=== PATIENT | female | born 1990 | race African-American/Black ===

== ENCOUNTER 2017-09-07 09:16 | Emergency (ER) | payer MEDICAID, OTHER ==
[2017-09-07] MEDS ORDERED: Erythromycin Base 0.5% Oint 1 GM TUBE ONE (11:13)
== END 2017-09-07 11:20 | disposition home or self-care (01) ==
LOC: ERS 09:16
DX: H18.821 Corneal disorder due to contact lens, right eye (principal)
CPT/HCPCS: 99283

== ENCOUNTER 2017-10-04 10:53 | Emergency (ER) | payer OTHER ==
[2017-10-04] MEDS ORDERED: Mag-Al 1200 mg/1200 mg/30 ML UDCUP ONE (11:59)
[2017-10-04] MEDS ORDERED: Lidocaine Viscous Sol 2% 15 ml UD Cup ONE (11:59)
[2017-10-04 12:42] LABS: #Basophils 0.1 thou/uL (0.0-0.2); #Eosinphils 0.4 thou/uL (0.0-0.7); #Monocytes 0.4 thou/uL (0.11-0.59); #Neutrophils 2.4 thou/uL (1.40-6.50); %Basophils 1.3 % (0.0-1.0); %Eosinophils 6.6 % (0.0-10.0); %Lymphocytes 47.6 % (21.0-51.0); %Monocytes 6.2 % (0.0-10.0); Hematocrit 43.3 % (36.0-47.0); Mean Platelet Volume 9.2 fL (7.4-10.4); White Blood Cell (WBC) Count 6.3 thou/uL (4.8-10.8)
[2017-10-04 12:52] LABS: Troponin I Less than 0.010 ng/mL (< 0.028)
[2017-10-04 12:56] LABS: ALT (SGPT) 13 U/L (8-55); AST (SGOT) 16 U/L (5-34); Alkaline Phosphatase 82 U/L (40-150); Anion Gap 14 mmol/L (10-20); BUN (Urea Nitrogen) 12 mg/dL (7.0-18.7); Bilirubin, Total 0.2 mg/dL (0.2-1.2); Calc. Creatinine Clearance 0 mL/min (70-130); Calcium 9.4 mg/dL (7.8-10.44); Carbon Dioxide 23 mmol/L (22-29); Chloride 105 mmol/L (98-107); Estimated GFR-MDRD 87; Globulin 3.5 g/dL (2.4-3.5); Protein, Total 7.6 g/dL (6.0-8.3)
--- NOTE | 2017-10-04 14:17 | CT ---
CT ANGIOGRAM THORAX WITH IV CONTRAST AND 3D RECONSTRUCTIONS: Date: 10/04/17 HISTORY: Chest pain that began last . Patient describes the chest pain as sharp and constant and loca marisol substernally. FINDINGS: No filling defects are seen in the pulmonary arteries to suggest a pulmonary embolus. The thoracic a elvei is normal in caliber without evidence of an aortic dissection. There is soft tissue density in the anterior superior mediastinum likely related to residual thymus. There is a tiny, 3.0 mm, noncalcified pulmonary nodule in the anterior aspect left lower lobe with a n additional tiny, approximately 3.0 mm, pleural based nodular density. There is a small, approximat gillian 4.0 mm, pulmonary nodule also seen in the left lower lobe further inferiorly, as well as an ankur tional pleural based nodular density measuring 3-4 mm seen laterally within the left lower lobe. There are two noncalcified pulmonary nodules within the right lower lobe, each measuring approximat gillian 5.0 mm. There is a smaller, approximately 3.0 mm, pulmonary nodule in the more inferior aspect o f the right lower lobe. The exact etiology for these pulmonary nodules on this examination is uncert ain. However, given multiplicity, a short interval follow-up examination is recommended. A few of e small pulmonary nodules were seen in the inferior lung bases on the prior CT abdomen in 2013. There are mildly prominent right axillary lymph nodes seen, the largest measuring approximately 1.2 cm in short axis dimension. This is overall nonspecific. IMPRESSION: 1. Multiple bilateral lower lobe pulmonary nodules measuring 5.0 mm or less which are of uncertain etiology. Some of these nodules were partially imaged on the prior CT abdomen on 03/16/14. However, given multiplicity of pulmonary nodules, follow-up evaluation in 4-6 months is recommended. 2. Mildly prominent nonspecific right axillary lymph nodes. 3. No CT evidence of a pulmonary embolus. Above findings discussed with Dr. Meyer in the emergency department on 10/04/17 at 1409 hours. CODE CR. POS: [id number]
[2017-10-04] MEDS ORDERED: ISOVUE-370 76%-LOCM 1 ML ONE (15:44)
== END 2017-10-04 15:35 | disposition home or self-care (01) ==
LOC: ERS 10:53
DX: R07.2 Precordial pain (principal); R91.8 Other nonspecific abnormal finding of lung field
CPT/HCPCS: 36415; 71275; 80053; 82553; 84484; 85025; 85379; 93005; 96360

== ENCOUNTER 2017-12-30 12:15 | Emergency (ER) | payer OTHER ==
[2017-12-30] MEDS ORDERED: Proparacaine 0.5% Opth 15 ML BOT ONE (14:30)
[2017-12-30] MEDS ORDERED: Fluorescein Opthalmic Strip ONE ×2 (14:30→14:31)
== END 2017-12-30 15:00 | disposition home or self-care (01) ==
LOC: ERS 12:15
DX: H10.022 Other mucopurulent conjunctivitis, left eye (principal)
CPT/HCPCS: 99283

== ENCOUNTER 2019-03-17 16:39 | Emergency (ER) | payer OTHER ==
--- NOTE | 2019-03-17 17:01 | RAD ---
3 views right ankle: 03/17/2019 COMPARISON: None HISTORY: Twisted right ankle, trauma, pain FINDINGS: The talar dome and ankle mortise are intact. There is mild soft tissue swelling seen anteri clarice. There is mild enthesophyte formation at the insertion of the Achilles tendon. Midfoot dorsal degenerative change noted with joint space narrowing and osteophyte formation. No displaced fracture or dislocation. IMPRESSION: No displaced fracture or evidence of dislocation.
== END 2019-03-17 18:35 | disposition home or self-care (01) ==
LOC: ERS 16:39
DX: S93.401A Sprain of unspecified ligament of right ankle, initial encounter (principal); X50.9XXA Other and unspecified overexertion or strenuous movements or postures, initial encounter

== ENCOUNTER 2019-11-02 07:48 | Outpatient (CLI) | payer OTHER ==
--- NOTE | 2019-11-02 09:26 | ULT ---
THYROID ULTRASOUND: HISTORY: Thyroid nodule. FINDINGS: Real-time imaging of the right and left lobes of the gland were performed. The right lobe measures 1 .8 x 2.5 x 5.8 cm and the left lobe 1.7 x 1.8 x 5.5 cm. No nodules identified. IMPRESSION: No evidence of any thyroid nodules. POS: [facility]
== END 2019-11-02 07:49 | disposition home or self-care (01) ==
LOC: BICULT 07:48
PROVIDERS: ATTEND Internal Medicine
DX: E04.9 Nontoxic goiter, unspecified (principal)
CPT/HCPCS: 76536

== ENCOUNTER 2023-08-13 10:07 | Emergency (ER) | payer OTHER ==
[2023-08-13] MEDS ORDERED: Proparacaine 0.5% Opth 15 ML BOT ONE (10:34)
[2023-08-13] MEDS ORDERED: Fluorescein Opthalmic Strip ONE (10:34)
[2023-08-13] MEDS ORDERED: Moxifloxacin 0.5% Opth Drop 3 ML BOT EA EYE SCH (12:00)
[2023-08-13] MEDS ORDERED: Ciprofloxacin 0.3% Ophth Soln 2.5 ml Bottle EA EYE SCH (13:00)
== END 2023-08-13 13:03 | disposition short-term general hospital (02) ==
LOC: ERS 10:07
DX: H44.002 Unspecified purulent endophthalmitis, left eye (principal); E11.9 Type 2 diabetes mellitus without complications; Z79.84 Long term (current) use of oral hypoglycemic drugs
CPT/HCPCS: 99284

== ENCOUNTER 2024-12-21 14:16 | Emergency (ER) | payer OTHER ==
[~2024-12-21 14:16] MED LIST: Iopamidol-370 76% 500 ML MDV (1 ML CHARGE) ONE
[2024-12-21] MEDS ORDERED: Ketorolac Tromethamine 30 MG (1 mL) VIAL ONE (15:44)
[2024-12-21 16:24] LABS: #Basophils 0.05 10x3/uL (0.0-0.2); %Basophils 0.5 % (0.0-1.0); %Eosinophils 0.8 % (0.0-10.0); %Lymphocytes 32.7 % (21.0-51.0); %Monocytes 7.1 % (0.0-10.0); %Neutrophils 58.6 % (42.0-75.0); Hematocrit 40.1 % (36.0-47.0); Hemoglobin 13.4 g/dL (12.0-16.0); Mean Corpuscular HGB CONC 33.4 g/dL (32.0-36.0); Mean Corpuscular Hemoglobin 29.3 pg (27.0-31.0); Mean Corpuscular Volume 87.7 fL (78.0-98.0); Platelet Count 251 10x3/uL (130-400); RBC Distribution Width 13.2 % (11.5-14.5); Red Blood Cell (RBC) Count 4.57 mill/uL (4.20-5.40)
[2024-12-21 16:47] LABS: ALT (SGPT) 7 U/L (Less than 34); AST (SGOT) 18 U/L (11-34); Albumin 4.1 g/dL (3.1-4.5); Alkaline Phosphatase 90 U/L (40-110); Anion Gap 15 mmol/L (10-20); BUN (Urea Nitrogen) 12 mg/dL (7.0-18.7); Bilirubin, Total 0.2 mg/dL (0.3-1.2); Calc. Creatinine Clearance 0 mL/min (70-130); Calcium 9.2 mg/dL (7.8-10.44); Carbon Dioxide 19 mmol/L (22-29); Chloride 108 mmol/L (98-107); Estimated GFR 66; Globulin 4.5 g/dL (2.4-3.5); Glucose 103 mg/dL (70-105); Potassium 3.6 mmol/L (3.5-5.1); Protein, Total 8.6 g/dL (6.0-8.3); Sodium 138 mmol/L (136-145)
[2024-12-21 18:03] LABS: BHCG - Serum Negative (NEGATIVE); Pregs Control Background? CLEAR/WHITE (CLR/WHITE); Pregs Control Bar Appear? YES (CONTROL BAR)
[2024-12-21] MEDS ORDERED: Lidocaine 1% PF 5 ML VIAL ONE (18:46)
[2024-12-21] MEDS ORDERED: Clindamycin 150 MG CAP ONE ×2 (19:20→19:31)
== END 2024-12-21 19:42 | disposition home or self-care (01) ==
LOC: ERS 14:16
DX: L02.11 Cutaneous abscess of neck (principal); E11.9 Type 2 diabetes mellitus without complications
CPT/HCPCS: 10060; 36415; 70491; 80053; 83605; 84703; 85025; 86141; 87070; 87077; 87205; 96374; J1885; Q9967

== ENCOUNTER 2025-10-05 16:59 | Emergency (ER) | payer OTHER ==
[2025-10-05 17:27] LABS: #Basophils 0.07 10x3/uL (0.0-0.2); #Eosinophils 0.30 10x3/uL (0.0-0.7); #Monocytes 0.72 10x3/uL (0.11-0.59); #Neutrophils 4.07 10x3/uL (1.40-6.50); %Basophils 0.7 % (0.0-1.0); %Eosinophils 3.1 % (0.0-10.0); %Lymphocytes 46.4 % (21.0-51.0); %Monocytes 7.5 % (0.0-10.0); %Neutrophils 42.2 % (42.0-75.0); Hematocrit 43.8 % (36.0-47.0); Hemoglobin 14.6 g/dL (12.0-16.0); Mean Corpuscular Hemoglobin 29.7 pg (27.0-31.0); Mean Corpuscular Volume 89.0 fL (78.0-98.0); Platelet Count 197 10x3/uL (130-400); Red Blood Cell (RBC) Count 4.92 mill/uL (4.20-5.40); White Blood Cell (WBC) Count 9.65 10x3/uL (4.8-10.8)
[2025-10-05 17:45] LABS: ALT (SGPT) 18 U/L (Less than 34); AST (SGOT) 22 U/L (11-34); Albumin 4.4 g/dL (3.1-4.5); Alkaline Phosphatase 70 U/L (40-110); Anion Gap 11 mmol/L (10-20); BUN (Urea Nitrogen) 11 mg/dL (7.0-18.7); Bilirubin, Total 0.2 mg/dL (0.3-1.2); Calc. Creatinine Clearance 0 mL/min (70-130); Calcium 9.3 mg/dL (7.8-10.44); Carbon Dioxide 25 mmol/L (22-29); Chloride 105 mmol/L (98-107); Globulin 3.9 g/dL (2.4-3.5); Glucose 86 mg/dL (70-105); Potassium 4.0 mmol/L (3.5-5.1); Sodium 137 mmol/L (136-145)
[2025-10-05] MEDS ORDERED: Ibuprofen 200 MG TAB ONE (17:47)
[2025-10-05] MEDS ORDERED: Acetaminophen 500 MG TAB ONE (17:47)
[2025-10-05 17:58] LABS: BHCG - Serum Negative (NEGATIVE); Pregs Control Background? CLEAR/WHITE (CLR/WHITE); Pregs Control Bar Appear? YES (CONTROL BAR)
== END 2025-10-05 19:49 | disposition home or self-care (01) ==
LOC: ERS 16:59
DX: R07.9 Chest pain, unspecified (principal); H18.893 Other specified disorders of cornea, bilateral; E11.9 Type 2 diabetes mellitus without complications; Z55.6 Problems related to health literacy
CPT/HCPCS: 71046; 80053; 84484; 84703; 85025; 93005